=== PATIENT | female | born 1995 | race Caucasian/White ===

== ENCOUNTER 2018-04-30 18:54 | Emergency (ER) | payer BC ==
[~2018-04-30] VITALS: Ht 157.5 cm; Wt 109.1 kg
[2018-04-30 18:59] VITALS: BP 128/68; TEMP 97.9
[2018-04-30 20:02] LABS: BASO # 0.1 (0.0-0.2); BASO % 0.3 % (0.0-2.0); EOS # 0.1 (0.0-0.7); EOS % 0.4 % (0-4.0); GRAN # 13.2 (1.4-6.5); GRAN % 81.8 % (42.2-75.2); HEMATOCRIT 44.5 % (37.0-47.0); HEMOGLOBIN 14.4 g/dl (12.5-16.0); LYMPH # 2.1 (1.2-3.4); LYMPH % 12.9 % (20.0-51.0); MEAN CELL VOLUME 82 fl (80.0-100.0); MEAN CORPUSCULAR HEMOGLOBIN 27 pg (27.0-31.0); MEAN CORPUSCULAR HGB CONC 32 g/dl (33.0-37.0); MEAN PLATELET VOLUME 9.9 fl (7.4-10.4); MONO # 0.7 (0.1-0.6); MONO % 4.2 % (1.7-9.3); PLATELET COUNT 329 K/mm3 (130-400); RED BLOOD COUNT 5.43 M/mm3 (4.10-5.30); REDCELL DISTRIBUTION WIDTH-CV 13.5 % (11.5-14.5)
[2018-04-30 20:37] LABS: ALBUMIN 4.4 gm/dL (3.5-5.0); BILIRUBIN,TOTAL 0.4 mg/dL (0.0-1.0); C-REACTIVE PROTEIN 1.3 mg/dL (0.0-0.9); CALCIUM 9.4 mg/dL (8.4-10.2); CREATININE, serum 0.79 mg/dL (0.52-1.25); POTASSIUM 4.2 mmol/L (3.4-5.0); TOTAL PROTEIN 7.9 gm/dL (6.4-8.2)
[2018-04-30 20:53] LABS: COLLECTION METHOD CLEAN CATCH
[2018-04-30 21:02] LABS: MUCOUS Present /lpf; PH 7 (5-8); URINE APPEARANCE Hazy; URINE BACTERIA None Seen /hpf; URINE BILIRUBIN Negative (NEGATIVE); URINE BLOOD Negative (NEGATIVE); URINE COLOR Yellow; URINE GLUCOSE Negative (NEGATIVE); URINE KETONE Negative (NEGATIVE); URINE LEUKOCYTE ESTERASE 1+ (NEGATIVE); URINE NITRATE Negative (NEGATIVE); URINE PROTEIN(semi-quant) 1+ (NEGATIVE)
[2018-04-30] MEDS ORDERED: PERCOCET 325 MG1 TA2 PO (23:05)
[2018-04-30] MEDS ORDERED: CEFTIN500 MG PO (23:05)
[2018-04-30] MEDS ORDERED: ZOFRAN ODT4 MG PO (23:05)
[2018-04-30] MEDS ORDERED: FLOMAX 0.40.4 MG/CAP PO (23:05)
[2018-04-30 23:59] VITALS: PULSE 95
== END 2018-05-01 | disposition home or self-care (01) ==
LOC: COL.ER 18:54
PROVIDERS: Emergency Medicine
DX: N12 Tubulo-interstitial nephritis, not specified as acute or chronic (principal); N20.2 Calculus of kidney with calculus of ureter
CPT/HCPCS: A4216; J0696; J1885; J2405; J3010; J7030; Q9967